=== PATIENT | female | born 1985 | race Caucasian/White ===

== ENCOUNTER 2023-03-05 07:15 | Observation (INO) | payer OTHER ==
[~2023-03-05] VITALS: Ht 167.6 cm; Wt 75.0 kg
[2023-03-05] VITALS (7 sets, daily range): BP systolic 108–133; BP diastolic 72–87; PULSE 95–102; TEMP 98.5–98.6
[~2023-03-05 07:15] MED LIST: FLEXERIL 1010 MG/TAB PO; NO HOME MEDICATIONS; NORCO 325 MG-51 TAB PO
[2023-03-05 07:49] LABS: BASO # 0.1 K/mm3 (0.0-0.2); BASO % 0.5 % (0.0-2.0); EOS # 0.5 K/mm3 (0.0-0.7); EOS % 2.3 % (0.0-4.0); GRAN # 15.9 K/mm3 (1.4-6.5); GRAN % 81.5 % (42.2-75.2); HEMATOCRIT 42.1 % (37.0-47.0); HEMOGLOBIN 14.1 g/dl (12.5-16.0); LYMPH # 1.7 K/mm3 (1.2-3.4); LYMPH % 8.8 % (20.0-51.0); MEAN CELL VOLUME 94 fl (80.0-100.0); MEAN CORPUSCULAR HEMOGLOBIN 31 pg (27-31); MEAN CORPUSCULAR HGB CONC 34 g/dl (33.0-37.0); MEAN PLATELET VOLUME 10.3 fl (7.4-10.4); MONO # 1.2 K/mm3 (0.1-0.6); MONO % 6.4 % (1.7-9.3); PLATELET COUNT 364 K/mm3 (130-400); RED BLOOD COUNT 4.49 M/mm3 (4.10-5.30); REDCELL DISTRIBUTION WIDTH-CV 13.5 % (11.5-14.5)
[2023-03-05 08:10] LABS: ALBUMIN 3.7 gm/dL (3.5-5.0); BILIRUBIN,TOTAL 0.6 mg/dL (0.2-1.2); C-REACTIVE PROTEIN 15.55 mg/dL (0.00-0.50); CALCIUM 9.3 mg/dL (8.4-10.2); CREATININE, serum 0.76 mg/dL (0.57-1.11); POTASSIUM 3.4 mmol/L (3.5-4.5); TOTAL PROTEIN 7.8 gm/dL (6.2-8.1)
--- NOTE | 2023-03-05 13:37 | NUR ---
Dr Anderson in to see pt, new orders wrote. Consent signed. Notified pharmacy regarding giving the icgreen
[2023-03-05] MEDS ORDERED: NORCO 325 MG-51 TAB PO (13:50)
[2023-03-05] MEDS ORDERED: AMOXICILLIN 8751 TAB PO (13:50)
[2023-03-05] MEDS ORDERED: MOTRIN 600600 MG/TAB PO (13:50)
--- NOTE | 2023-03-05 13:58 | NUR ---
Pt off the floor for surgery at this time
--- NOTE | 2023-03-05 17:00 | NUR ---
PT back recently from surgery. Lap sites well approximated ARSEN. PT reports just having mild cramping, denies the need for pain medication. Gave her some fresh ice water and explained post op care. Call light within reach, will continue to monitor
--- NOTE | 2023-03-05 18:05 | NUR ---
Pt doing well, tolerating the low fat diet without any complaints of nausea/vomiting. Pt states that pain is tolerable, denies the need for pain medication
--- NOTE | 2023-03-05 19:26 | NUR ---
report received from eleonora perez. pt resting in bed with spouse at bedside. pt denies pain. pt tolerated dinner well. post op vss. last dose of augmentin administered by previous shift. new orders for discharge in from dr. atkinson. call light in place. all needs met at this time.
--- NOTE | 2023-03-05 20:25 | NUR ---
shift assessment complete, see documentation. pt denies pain or discomfort. lap sites edges well approximated ARSEN. discharge instructions provided. pt education given. iv dc'd. f/t appt discussed. medications reviewed. pt denies questions or concerns. pt escorted out with belongings via [facility].
== END 2023-03-05 20:15 | disposition home or self-care (01) ==
LOC: COL.ER 07:15 → SURG 09:16 → COL.ER 09:19 → SURG 12:49
PROVIDERS: Emergency Medicine; ADMIT Surgery
DX: K81.0 Acute cholecystitis (principal); F17.210 Nicotine dependence, cigarettes, uncomplicated
CPT/HCPCS: G0378; J0690; J1100; J1885; J2405; J2543; J2704; J3010; J7030; J7120; Q9967